=== PATIENT | female | born 1995 | race American Indian/Alaskan Native ===

== ENCOUNTER 2019-09-05 17:33 | Emergency (ER) | payer MEDICAID ==
[2019-09-05 17:44] VITALS: BP 127/72
--- NOTE | 2019-09-05 17:58 | Emergency Department Report ---
Blank Doc - Documentation Documentation: 24-year-old female that presents with pelvic pain, vaginal discharge, dysuria. Also has rash x2 weeks. This initial assessment/diagnostic orders/clinical plan/treatment(s) is/are subject to change based on patient's health status, clinical progression and re- assessment by fellow clinical providers in the ED. Further treatment and workup at subsequent clinical providers discretion. Patient/guardians urged not to elope from the ED as their condition may be serious if not clinically assessed and managed. Initial orders include: 1- Patient sent to [facility] for further evaluation and treatment 2- UA 3- pelvic exam r/o PID
[2019-09-05 18:08] LABS: Bilirubin,Urine NEG (Negative); Blood,Urine NEG (Negative); Color,Urine Yellow (Yellow); Mucus,Urine FEW /HPF; Protein,Urine <15 mg/dL mg/dL (Negative)
[2019-09-05 18:16] LABS: HCG Qualitative,Urine Negative (Negative)
== END 2019-09-05 22:45 | disposition left against medical advice (07) ==
LOC: ED 17:33
DX: R10.2 Pelvic and perineal pain (principal); Z53.21 Procedure and treatment not carried out due to patient leaving prior to being seen by health care provider
CPT/HCPCS: 81001; 81025

== ENCOUNTER 2019-11-14 17:10 | Emergency (ER) | payer MEDICAID ==
[2019-11-14 17:16] VITALS: BP 128/70
--- NOTE | 2019-11-14 19:04 | Emergency Department Report ---
Chief Complaint: Urogenital-Female Stated Complaint: BACK XRAY Time Seen by Provider: 11/14/19 18:42 - HPI History of Present Illness: Patient is a 24-year-old female presents emergency room complaints of vaginal discharge with an odor that began 2 days ago. She states that when she had this in the past she was diagnosed with BV. She denies any dysuria, urinary retention, fever, vomiting, abdominal pain, pelvic pain, vaginal bleeding, lesions, blisters. She states that she has been sexually active without protection. She denies any allergies to medications. Vitals are normal On exam: Non toxic appearing, no acute distress atraumatic, normocephalic normal appearance of the eyes, PERRL, EOMI, no periorbital edema or ecchymosis moist mucus membranes regular heart rate and rhythm, no gallops, no rubs, no murmurs breath sounds are clear bilaterally, no w/r/r No abdominal tenderness on exam, no guarding, no rebound, no rigidity, no peritoneal signs, normal bowel sounds A&O x4, no focal neuro deficit skin is warm, dry, intact Patient is presenting for vaginal discharge She has no urinary symptoms to suggest UTI She has no dysuria, urinary retention, fever, vomiting, abdominal pain, pelvic pain, vaginal bleeding, lesions, blisters. Patient has no clinical signs of PID Patient will be referred to clinic, [facility], health department in order to receive full STD panel advised pt Please follow-up with a clinic, the health department, or [facility] for full STD panel. Please have any partner tested and treated as well. Please avoid sexual intercourse. Return to emergency room if you began experiencing any new or worsening symptoms including but not limited to abdominal pain, pelvic pain, burning upon urination, fever, chills, vomiting, etc. Patient referred to the appropriate resources Discussed strict return precautions with patient Medical screening examination performed and there is no threat to life or limb at this time - Exam Vital Signs: Vital Signs 11/14/19 17:15 Temperature 98.9 F Pulse Rate 77 Respiratory 16 Rate Blood Pressure 128/70 [Right] O2 Sat by Pulse 98 Oximetry MSE screening note: Focused history and physical exam performed. \ ED Disposition for MSE Clinical Impression: Vaginal discharge Disposition: Z- MED SCREENING EXAM-LEFT Is pt being admited?: No Does the pt Need Aspirin: No Condition: Stable Instructions: Sexually Transmitted Diseases (ED), Safe Sex (ED), Vaginitis (ED) Additional Instructions: Please follow-up with a clinic, the health department, or [facility] for full STD panel. Please have any partner tested and treated as well. Please avoid sexual intercourse. Return to emergency room if you began experiencing any new or worsening symptoms including but not limited to abdominal pain, pelvic pain, burning upon urination, fever, chills, vomiting, etc. [facility] Address: [address] [place] [id number] Referrals: [facility] [Outside] - 2-3 Days [facility] [Provider Group] - 2-3 Days Time of Disposition: 19:02 Print Language: [place]
== END 2019-11-14 19:10 | disposition left against medical advice (07) ==
LOC: ED 17:10
DX: N89.8 Other specified noninflammatory disorders of vagina (principal); Z53.21 Procedure and treatment not carried out due to patient leaving prior to being seen by health care provider